=== PATIENT | female | born 1995 | race Caucasian/White ===

== ENCOUNTER 2019-02-01 03:05 | Emergency (ER) | payer OTHER ==
[2019-02-01 04:02] LABS: Bilirubin,Urine NEG (Negative); Color,Urine Red (Yellow); RBC,Urine > 182.0 /HPF (0.0-6.0); Urobilinogen,Urine < 2.0 mg/dL (<2.0); WBC,Urine > 182.0 /HPF (0.0-6.0)
[2019-02-01 04:03] LABS: Blood,Urine Large (Negative)
[2019-02-01] MEDS ORDERED: ROCEPHIN IM ONE (06:10)
[2019-02-01] MEDS ORDERED: XYLOCAINE 1% MPF 5 mL INFILTRATI ONE (06:10)
[2019-02-01] MEDS ORDERED: TYLENOL PO ONE (06:10)
--- NOTE | 2019-02-01 06:30 | Emergency Department Report ---
ED Female HPI - General Chief complaint: Urogenital-Female Stated complaint: BLOOD IN URINE Time Seen by Provider: 02/01/19 06:05 Source: patient Mode of arrival: Ambulatory Limitations: No Limitations - History of Present Illness Initial comments: Patient is nulliparous 23-year-old [place] with no past medical history presents to the ED with complaint of acute onset persistent dysuria, urinary frequency and urgency, hematuria for the last 2 days. Patient denies vaginal discharge, nausea, vomiting, fever, chills, low back pain, vaginal bleeding, dyspareunia, headache or dizziness and diarrhea. Patient states that her symptoms got worse in the last 6 hours. MD Complaint: dysuria, pelvic pain, other (urinary urgency and frequency) -: Sudden, days(s) (2) Location: suprapubic, other (vagina) Radiation: non-radiating Severity: severe Severity scale (0 -10): 7 Quality: sharp, burning, aching Consistency: constant Improves with: none Worsens with: urination Are you Now?: No Last Menstrual Period: 01/22/19 EDC: 10/29/19 Associated Symptoms: denies other symptoms, abdominal pain, dysuria, hematuria. denies: vaginal discharge, nausea/vomiting, fever/chills, headaches, loss of appetite, rash, seizure, shortness of breath, syncope, weakness - Related Data Sexually active: Yes : 0 Para: 0 A: 0 Previous Rx's Medication Instructions Recorded Last Taken Type Naproxen [Naprosyn] 500 mg PO Q12H PRN #20 tablet 02/01/19 Unknown Rx Phenazopyridine [Pyridium] 200 mg PO Q8H PRN #15 tab 02/01/19 Unknown Rx Sulfamethoxazole/Trimethoprim 1 each PO Q12H #20 tablet 02/01/19 Unknown Rx [Bactrim DS TAB] Allergies Allergy/AdvReac Type Severity Reaction Status Date / Time No Known Allergies Allergy Unverified 02/01/19 03:30 ED Review of Systems ROS: Stated complaint: BLOOD IN URINE Other details as noted in HPI Constitutional: denies: chills, fever Eyes: denies: eye pain, eye discharge, vision change ENT: denies: ear pain, throat pain Respiratory: denies: cough, shortness of breath, wheezing Cardiovascular: denies: chest pain, palpitations Endocrine: no symptoms reported Gastrointestinal: abdominal pain (suprapubic pressure). denies: nausea, diarrhea Genitourinary: urgency, dysuria, frequency, hematuria. denies: discharge Musculoskeletal: denies: back pain, joint swelling, arthralgia Skin: denies: rash, lesions Neurological: denies: headache, weakness, paresthesias Psychiatric: denies: anxiety, depression Hematological/Lymphatic: denies: easy bleeding, easy bruising ED Past Medical Hx - Past Medical History Previous Medical History?: No - Surgical History Past Surgical History?: No - Social History Smoking Status: Current Some Day Smoker Substance Use Type: Marijuana - Medications Home Medications: Home Medications Medication Instructions Recorded Confirmed Last Taken Type Naproxen [Naprosyn] 500 mg PO Q12H PRN #20 tablet 02/01/19 Unknown Rx Phenazopyridine [Pyridium] 200 mg PO Q8H PRN #15 tab 02/01/19 Unknown Rx Sulfamethoxazole/Trimethoprim 1 each PO Q12H #20 tablet 02/01/19 Unknown Rx [Bactrim DS TAB] ED Physical Exam - General Limitations: No Limitations General appearance: alert, in no apparent distress - Head Head exam: Present: atraumatic, normocephalic, normal inspection - Eye Eye exam: Present: normal appearance, PERRL, EOMI. Absent: scleral icterus, conjunctival injection, nystagmus Pupils: Present: normal accommodation - ENT ENT exam: Present: normal exam, normal orophraynx, mucous membranes moist, TM's normal bilaterally, normal external ear exam - Neck Neck exam: Present: normal inspection, full ROM. Absent: tenderness - Respiratory Respiratory exam: Present: normal lung sounds bilaterally. Absent: respiratory distress, wheezes, rales, rhonchi, chest wall tenderness, accessory muscle use, decreased breath sounds, prolonged expiratory - Cardiovascular Cardiovascular Exam: Present: regular rate, normal rhythm, normal heart sounds. Absent: systolic murmur, diastolic murmur, rubs, gallop - GI/Abdominal GI/Abdominal exam: Present: soft, normal bowel sounds. Absent: distended, tenderness, guarding, rebound, hyperactive bowel sounds, hypoactive bowel sounds - Rectal Rectal exam: Present: deferred - Bi-manual exam: Present: other (Deferred, patient declined) - Extremities Exam Extremities exam: Present: normal inspection, full ROM, normal capillary refill - Back Exam Back exam: Present: normal inspection, full ROM. Absent: tenderness, CVA tenderness (R), CVA tenderness (L), muscle spasm, paraspinal tenderness - Neurological Exam Neurological exam: Present: alert, oriented X3, CN II-XII intact, normal gait, reflexes normal - Psychiatric Psychiatric exam: Present: normal affect, normal mood - Skin Skin exam: Present: warm, dry, intact, normal color. Absent: rash ED Course - Reevaluation(s) Reevaluation #1: 02/01/19 06:31 Patient is alert and oriented 3 and is not in distress with normal vital signs. Urinalysis shows significant urinary tract infection with gross hematuria. Patient was treated for pain in the ED and also given Rocephin 1 g IM injection. Patient was discharged home on antibiotics and advised to follow-up with her primary care physician in 7-10 days for reevaluation. The patient advised to return to the ED immediately if symptoms get worse. ED Medical Decision Making - Medical Decision Making Patient is alert and oriented 3 and is not in distress with normal vital signs. Urinalysis shows significant urinary tract infection with gross hematuria. Patient was treated for pain in the ED and also given Rocephin 1 g IM injection. Patient was discharged home on antibiotics and advised to follow-up with her primary care physician in 7-10 days for reevaluation. The patient advised to return to the ED immediately if symptoms get worse. - Differential Diagnosis acute cystitis, acute UTI, Hematuria, Acute PID Critical care attestation.: If time is entered above; I have spent that time in minutes in the direct care of this critically ill patient, excluding procedure time. ED Disposition Clinical Impression: Acute urinary tract infection, Dysuria, Hematuria due to acute cystitis Disposition: DC-01 TO HOME OR SELFCARE Is pt being admited?: No Does the pt Need Aspirin: No Condition: Stable Instructions: Urinary Tract Infection in Women (ED), Dysuria (ED), Acute Hematuria (ED) Additional Instructions: Take medications with food, drink plenty of fluids and follow up with your primary care physician in 7-10 days for reevaluation. Return to the ED immediately if symptoms get worse. Prescriptions: Sulfamethoxazole/Trimethoprim [Bactrim DS TAB] 1 each PO Q12H #20 tablet Naproxen [Naprosyn] 500 mg PO Q12H PRN #20 tablet PRN Reason: Pain , Severe (7-10) Phenazopyridine [Pyridium] 200 mg PO Q8H PRN #15 tab PRN Reason: dysuria Referrals: [facility] [Outside] - 3-5 Days Time of Disposition: 06:29 Print Language: HEBREW
== END 2019-02-01 07:08 | disposition home or self-care (01) ==
LOC: ED 03:05
DX: N30.01 Acute cystitis with hematuria (principal); F17.200 Nicotine dependence, unspecified, uncomplicated; F12.10 Cannabis abuse, uncomplicated; Z79.899 Other long term (current) drug therapy
CPT/HCPCS: 81001; 87076; 87086; 87186; 96372; 99283; J0696